=== PATIENT | male | born 1995 | race Hispanic/Latino ===

== ENCOUNTER 2024-03-14 01:41 | Emergency (ER) | payer SELFPAY ==
[2024-03-14] MEDS ORDERED: Ondansetron PF 4 MG/2 ML Vial ONE (01:57)
[2024-03-14] MEDS ORDERED: Famotidine/PF 20 mg/2ml Vial ONE (01:58)
[2024-03-14 02:04] LABS: #Basophils 0.04 10x3/uL (0.0-0.2); #Neutrophils 5.02 10x3/uL (1.5-8.4); %Basophils 0.5 % (0.0-2.0); %Eosinophils 1.3 % (0.0-6.0); %Lymphocytes 26.4 % (18.0-47.0); %Monocytes 5.3 % (0.0-10.0); %Neutrophils 66.1 % (40.0-75.0); Hematocrit 48.2 % (38.8-50.0); Hemoglobin 17.2 g/dL (13.5-17.5); Mean Corpuscular HGB CONC 35.7 g/dL (32.0-36.0); Mean Corpuscular Hemoglobin 30.9 pg (27.0-33.0); Mean Corpuscular Volume 86.5 fL (81.2-95.1); Mean Platelet Volume 10.3 fL (7.4-10.4); Platelet Count 201 10x3/uL (150-450); RBC Distribution Width 13.2 % (11.5-14.5); Red Blood Cell (RBC) Count 5.57 10x6/uL (4.32-5.72); White Blood Cell (WBC) Count 7.6 10x3/uL (3.5-10.5)
[2024-03-14] MEDS ORDERED: fentaNYL 50 mcg/mL 1 mL Vial ONE (02:07)
[2024-03-14 02:23] LABS: ALT (SGPT) 32 U/L (8-55); AST (SGOT) 53 U/L (5-34); Albumin 4.2 g/dL (3.5-5.0); Alkaline Phosphatase 89 U/L (40-110); Anion Gap 20 mmol/L (10-20); BUN (Urea Nitrogen) 11 mg/dL (8.9-20.6); Bilirubin, Total 0.4 mg/dL (0.2-1.2); Calc. Creatinine Clearance 0 mL/min (70-130); Calcium 9.5 mg/dL (7.8-10.44); Carbon Dioxide 19 mmol/L (22-29); Chloride 106 mmol/L (98-107); Estimated GFR 120; Globulin 3.9 g/dL (2.4-3.5); Glucose 150 mg/dL (70-105); Lipase 53 U/L (8-78); Potassium 3.8 mmol/L (3.5-5.1); Protein, Total 8.1 g/dL (6.0-8.3); Sodium 141 mmol/L (136-145)
[2024-03-14] MEDS ORDERED: diphenhydrAMINE 50 MG/ML VIAL ONE (02:48)
[2024-03-14] MEDS ORDERED: Milk Of Magnesia 30 ML UDCUP ONE (05:15)
[2024-03-14] MEDS ORDERED: Lidocaine 2% Viscous 10 mL, Alum & Magn 30 mL SSW SCH (05:15)
[2024-03-14] MEDS ORDERED: Lidocaine Viscous Sol 2% 15 ml UD Cup ONE (05:16)
== END 2024-03-14 05:32 | disposition home or self-care (01) ==
LOC: CSHERS 01:41
DX: R10.13 Epigastric pain (principal)
CPT/HCPCS: 74177; 80053; 83605; 83690; 85025; 93005; 93010; 96361; 96374; 96375; J1200; J2405; J3010; J3490